=== PATIENT | female | born 1970 | race Caucasian/White ===

== ENCOUNTER 2016-06-29 14:50 | Emergency (ER) | payer BC ==
--- NOTE | 2016-06-29 15:57 | RAD ---
Indication left flank pain. Axial images of the abdomen and pelvis were obtained. The examination was tailored for the detection of renal and/or ureteral calculi. No IV or gastrointestinal contrast was administered. The lung bases are clear. The liver and spleen appear unremarkable. Clips are noted in the gallbladder fossa. No definite pancreatic pathology is seen. The adrenal glands appear unremarkable. There is a minute right renal calculus. No hydronephrosis hydroureter or calcification is seen along the course of the right ureter. There is left hydronephrosis. There is stranding surrounding the left kidney and a small amount of perinephric fluid. There is mild dilatation of the left ureter. The most distal left ureter is not well seen. The dilatation and hydronephrosis is likely secondary to a minute calculus in the distal left ureter (axial image 127 series 2). There is a small amount of air in the urinary bladder which is probably secondary to the reported cystoscopy earlier today. No additional finding is seen in the abdomen or pelvis. A few retroperitoneal lymph nodes are noted. These are likely incidental. There are degenerative changes in the lumbar spine. IMPRESSION: Left hydronephrosis and mild hydroureter likely secondary to a minute 1 to 2 mm calculus in the distal left ureter Minute right renal calculus PQRS Compliance Statement: One or more of the following individualized dose reduction techniques were utilized for this examination: 1. Automated exposure control 2. Adjustment of the mA and/or kV according to patient size 3. Use of iterative reconstruction technique
[2016-06-29] MEDS ORDERED: IV NORMAL SALINE 50ML 50 ML ONE (15:58)
[2016-06-29] MEDS ORDERED: CEFTRIAXONE SODIUM 1 GM VIAL IV ONE (15:58)
[2016-06-29] MEDS: IV NORMAL SALINE 1,000ML 1,000 ML IV ONE (16:00)
[2016-06-29] MEDS: ONDANSETRON PF 4 MG/2 ML VIAL. IV ONE (16:16)
[2016-06-29] MEDS: KETOROLAC 30 MG/ML VIAL. IV ONE (16:17)
[2016-06-29] MEDS: MORPHINE SULFATE 4 MG/ML DISP.SYRIN. IV ONE (16:20)
[2016-06-29] MEDS: TAMSULOSIN 0.4 MG CAP.ER.24H. PO ONE (16:25)
[2016-06-29] MEDS: CEFTRIAXONE SODIUM 1 GM in IV NORMAL SALINE 50ML 50 ML IV ONE (16:25)
[2016-06-29 17:03] LABS: BACTERIA,URINE 0 /HPF (0-FEW); BILIRUBIN,URINE NEG (NEG); CLARITY,URINE HAZY; COLOR,URINE YELLOW; GLUCOSE,URINE NEG (NEG); NITRITE,URINE POS (NEG); RBC,URINE >40 /HPF (0-2); UROBILINOGEN,URINE 0.2 mg/dL (0.2 mg/dL); WBC,URINE 0 /HPF (0-4)
[2016-06-29 17:04] LABS: SQUAMOUS EPITHELIAL CELL,UR MOD /LPF
[2016-06-29 17:35] VITALS: BP 142/76
--- NOTE | 2016-07-03 08:51 | ED.ADGEN ---
Past History Past Medical History: Kidney Stones Past Surgical History: Cholecystectomy, Hysterectomy, Tonsillectomy Alcohol Use: Occasionally Drug Use: None Adult General Chief Complaint Chief Complaint Left flank pain HPI HPI Patient is a 45-year-old female presents acute onset left sided flank pain radiating to left pelvis, with nausea. No fever, chills, hematuria or sweats. Symptom onset started this morning upon returning from urology procedure. Patient had a cystoscopy with retrograde pyelogram per Dr. Cabrera. Review of Systems Review of Systems Review symptoms as per history of present illness. All other review symptoms are negative. Current Medications Current Medications Current Medications Medications (Trade) Dose Ordered Sig/Pawel Start Time Stop Time Status Last Admin Dose Admin Ceftriaxone Sodium/Sodium Chloride (Rocephin/Iv Sodium Chloride 0.9% 50ml) 50 ml @ 100 mls/hr 1X ONCE 06/29/16 16:00 06/29/16 16:29 DC 06/29/16 16:25 100 MLS/HR Ceftriaxone Sodium (Rocephin) 1 gm STK-MED ONCE 06/29/16 15:58 06/29/16 15:59 DC Ketorolac Tromethamine (Toradol) 30 mg 1X ONCE 06/29/16 16:15 06/29/16 16:16 DC 06/29/16 16:17 30 MG Morphine Sulfate (Morphine 4mg Syringe) 4 mg 1X ONCE 06/29/16 16:00 06/29/16 16:01 DC 06/29/16 16:20 4 MG Ondansetron HCl (Zofran) 4 mg 1X ONCE 06/29/16 16:00 06/29/16 16:01 DC 06/29/16 16:16 4 MG Sodium Chloride (Iv Sodium Chloride 0.9% 50ml) 50 ml @ As Directed STK-MED ONCE 06/29/16 15:58 06/29/16 15:59 DC Tamsulosin HCl 0.4 mg 0.4 mg 1X ONCE 06/29/16 16:15 06/29/16 16:16 DC 06/29/16 16:25 0.4 MG Allergies Allergies Allergies Coded Allergies Type Severity Reaction Last Updated Verified Sulfa (Sulfonamide Antibiotics) Allergy Unknown Hives 06/29/16 Yes Physical Exam Physical Exam Constitutional: Well developed, well nourished, moderate discomfort secondary to pain. HENT: Normocephalic, atraumatic, bilateral external ears normal, oropharynx moist, no oral exudates, nose normal. Eyes: PERRLA, EOMI, conjunctiva normal, no discharge. [] Neck: Normal range of motion, no tenderness, supple, no stridor. [] Cardiovascular:Heart rate regular rhythm, no murmur [] Lungs & Thorax: Bilateral breath sounds clear to auscultation [] Abdomen: Bowel sounds normal, soft, no tenderness. Skin: Warm, dry, no erythema, no rash. [] Back: No tenderness, no CVA tenderness. Extremities: No tenderness, no cyanosis, no clubbing, ROM intact, no edema. [] Neurologic: Alert and oriented X 3, normal motor function, normal sensory function, no focal deficits noted. [] Psychologic: Affect normal, judgement normal, mood normal. [] Current Patient Data Vital Signs Vital Signs Date Time Temp Pulse Resp B/P Pulse Ox O2 Delivery O2 Flow Rate FiO2 06/29/16 17:35 86 18 142/76 99 Room Air 06/29/16 14:50 97.9 Lab Results Laboratory Tests Test 06/29/16 16:15 Urine Collection Type Unknown Urine Color Yellow Urine Clarity Hazy Urine pH 6.0 Urine Specific [place] 1.025 Urine Protein 100 mg/dl (NEG-TRACE) Urine Glucose (UA) Negmg/dL (NEG) Urine Ketones (Stick) Negmg/dL (NEG) Urine Blood Large (NEG) Urine Nitrite Pos (NEG) Urine Bilirubin Neg (NEG) Urine Urobilinogen Dipstick 0.2mg/dL (0.2 mg/dL) Urine Leukocyte Esterase Neg (NEG) Urine RBC >40/HPF (0-2) Urine WBC 0/HPF (0-4) Urine Squamous Epithelial Cells Mod/LPF Urine Bacteria 0/HPF (0-FEW) EKG EKG [] Radiology/Procedures Radiology/Procedures [CT abdomen pelvis: Moderate right [place] with probable left distal ureteral stone or radiology report] Impressions: Renal colic Course & Med Decision Making Course & Med Decision Making Pertinent Labs and Imaging studies reviewed. (See chart for details) [Symptoms resolved in the ED. Case reviewed in detail with the patient's urologist. Recommend supportive treatment and follow-up in the office.] Final Impression Final Impression [1. Left flank pain 2. Ureteral stone] Problems: Dragon Disclaimer Dragon Disclaimer This electronic medical record was generated, in whole or in part, using a voice recognition dictation system. DENITA CARBAJAL DO Jul 03, 2016 08:47
== END 2016-06-29 17:35 | disposition home or self-care (01) ==
LOC: ER 14:50
DX: N20.1 Calculus of ureter (principal); R10.9 Unspecified abdominal pain; Z87.442 Personal history of urinary calculi; Z88.2 Allergy status to sulfonamides; Z90.49 Acquired absence of other specified parts of digestive tract; Z90.710 Acquired absence of both cervix and uterus
CPT/HCPCS: 74176; 81001; 96365; 96375; 99285; J0696; J1885; J2270; J2405; J7030

== ENCOUNTER 2017-05-30 09:38 | Emergency (ER) | payer BC ==
[~2017-05-30] VITALS: Ht 177.8 cm; Wt 62.1 kg
[2017-05-30] MEDS ORDERED: IV NORMAL SALINE 1,000ML 1,000 ML IV SCH (09:51)
[2017-05-30] MEDS ORDERED: 0.9 % SODIUM CHLORIDE 10 ML DISP.SYRIN. IV PRN (10:00)
--- NOTE | 2017-05-30 10:04 | PHYS DOC ---
Past History Past Medical History: Kidney Stones Past Surgical History: Cholecystectomy, Hysterectomy, Tonsillectomy Smoking: Non-smoker Alcohol Use: Occasionally Drug Use: None Adult General Chief Complaint Chief Complaint: FLANK PAIN HPI HPI 46-year-old female patient with history of previous kidney stones complains of sudden onset of right flank pain for the last 3 days as an intermittent and sharp stabbing pain with radiation to right lower quadrant that getting force since 2 AM today and associated with 3-4 episodes of vomiting this morning. Patient rated her pain 9/10 and denies fever and chills, new urinary symptoms, diarrhea and constipation. Patient said the pain is like her previous episodes of kidney as well and she tried to drink plenty of liquids without improvement of her condition she states she usually has hematuria because of history of interstitial cystitis but did not have any new change of urine color. Patient states she took leftover of hydrocodone and Phenergan from her previous kidney stone in June of last year but was not able to take any medication since this morning because of nausea and vomiting. Review of Systems Review of Systems Constitutional: Denies fever or chills [] Eyes: Denies change in visual acuity, redness, or eye pain [] HENT: Denies nasal congestion or sore throat [] Respiratory: Denies cough or shortness of breath [] Cardiovascular: No additional information not addressed in HPI [] GI: Reports flank pain, abdominal pain, nausea, vomiting, denies bloody stools or diarrhea [] : Denies dysuria, reports much reviewed and flank pain Musculoskeletal: Denies back pain or joint pain [] Integument: Denies rash or skin lesions [] Neurologic: Denies headache, focal weakness or sensory changes [] Endocrine: Denies polyuria or polydipsia [] All other systems were reviewed and found to be within normal limits, except as documented in this note. Current Medications Current Medications Current Medications Medications (Trade) Dose Ordered Sig/Pawel Start Time Stop Time Status Last Admin Dose Admin Ketorolac Tromethamine (Toradol) 30 mg 1X ONCE 05/30/17 10:00 05/30/17 10:01 UNV Ondansetron HCl (Zofran) 4 mg 1X ONCE 05/30/17 10:00 05/30/17 10:01 UNV Sodium Chloride (Normal Saline Flush) 10 ml QSHIFT PRN 05/30/17 10:00 UNV Allergies Allergies Allergies Coded Allergies Type Severity Reaction Last Updated Verified Sulfa (Sulfonamide Antibiotics) Allergy Unknown Hives 06/29/16 Yes Physical Exam Physical Exam Constitutional: Well developed, well nourished, moderate distress, non-toxic appearance. [] HENT: Normocephalic, atraumatic, bilateral external ears normal, oropharynx moist, no oral exudates, nose normal. [] Eyes: PERRLA, EOMI, conjunctiva normal, no discharge. [] Neck: Normal range of motion, no tenderness, supple, no stridor. [] Cardiovascular:Heart rate regular rhythm, no murmur [] Lungs & Thorax: Bilateral breath sounds clear to auscultation [] Abdomen: Bowel sounds normal, soft, no tenderness, no masses, no pulsatile masses. [] Skin: Warm, dry, no erythema, no rash. [] Back: No tenderness, no CVA tenderness. [] Extremities: No tenderness, no cyanosis, no clubbing, ROM intact, no edema. [] Neurologic: Alert and oriented X 3, normal motor function, normal sensory function, no focal deficits noted. [] Psychologic: Anxious, judgement normal, mood normal. [] EKG EKG [] Radiology/Procedures Radiology/Procedures [] [place] [address] IMAGING REPORT Signed PATIENT: JERMAINE BABB ACCOUNT: [id number] : 1970 LOCATION: ER AGE: 46 SEX: F EXAM STATUS: REG ER ORD. PHYSICIAN: PETE CUMMINGS MD REASON: right flank pain PROCEDURE: CT ABDOMEN PELVIS WO CONTRAST CT study of the abdomen and pelvis without contrast Clinical indications: Right flank pain. Hematuria since Sunday. History of stones. Technique: Noncontrast helical CT scanning of the abdomen and pelvis was performed. Without contrast, the sensitivity to detect organ pathology and GI tract pathology is decreased. PQRS Compliance Statement: One or more of the following individualized dose reduction techniques were utilized for this examination: 1. Automated exposure control 2. Adjustment of the mA and/or kV according to patient size 3. Use of iterative reconstruction technique IMPRESSION: June 29, 2016. Findings: Nonobstructing punctate stone of the lower pole of the right kidney is seen. No hydronephrosis or hydroureter or ureteral stone is seen. A small subcentimeter hypodense nodule of the upper pole of the right kidney is seen most likely representing a hyperdense cyst. A small hypodense cyst was seen here previously and is unchanged in size. No perinephric inflammatory change or free fluid is evident. No adrenal mass is seen. No focal aneurysmal dilatation of the abdominal aorta is seen. No bulky abdominal pelvic lymphadenopathy is evident. Urinary bladder wall is smooth. The liver and spleen are homogeneous in appearance on this noncontrast study. The pancreatic borders are difficult to delineate due to nonopacified adjacent bowel loops. The gallbladder is surgically absent and no extra hepatic biliary ductal dilatation is seen. There are no CT findings of appendicitis. No obstructive bowel pattern is evident. No free air or free fluid or mesenteric edema is seen. No lung base consolidation is evident. No osteolytic process is seen. IMPRESSION: Nonobstructing punctate stone of the lower pole of the right kidney. No hydronephrosis or hydroureter or ureteral stone is seen. DICTATED AND SIGNED BY: DESTINY KUO MD DATE: 05/30/17 1030 CC: PETE CUMMINGS MD; KATELYN AUSTIN ~ Course & Med Decision Making Course & Med Decision Making Pertinent Labs and Imaging studies reviewed. (See chart for details) Evaluation of patient in ER showed 46-year-old female patient with history of kidney stone and complaining of intermittent episodes of right flank pain. Patient had unremarkable labs and CT abdomen and pelvis except for mild UTI and nonobstructive right kidney stone. Patient treated with Toradol and states her pain did not change after having morphine she states her pain improved. Plan discharge patient home to diagnose of UTI and flank pain. I've spoken with the patient and/or caregivers. I've explained the patient's condition, diagnosis and treatment plan based on information available to me at this time. I've answered the patient's and/or caregivers questions and addressed any concerns. The patient and/or caregivers have a good understanding the patient's diagnosis, condition and treatment plan as can be expected at this point. Vital signs have been stabilized. The patient's condition is stable for discharge from the emergency department. The patient will pursue further outpatient evaluation with her primary care provider or other designated consulting physician as outlined in the discharge instructions. Patient and/or caregivers are agreeable to this plan of care and follow-up instructions have been explained in detail. The patient and/or caregivers have received these instructions in written format and expressed understanding of these discharge instructions. The patient and her caregivers are aware that if any significant change in condition or worsening of symptoms should prompt him to immediately return to this of the closest emergency department. If an emergent department is not readily available I would encourage him to call 911. John Disclaimer Dragon Disclaimer This electronic medical record was generated, in whole or in part, using a voice recognition dictation system. Departure Departure: Impression: Primary Impression: Acute right flank pain Additional Impressions: Urinary tract infection Dehydration Nephrolithiasis Musculoskeletal strain Disposition: HOME, SELF-CARE (At 1216) Condition: IMPROVED Referrals: KATELYN AUSTIN (PCP) Patient Instructions: Dehydration, Adult, Diet for Kidney Stones, Flank Pain, Urinary Tract Infection Additional Instructions: Drink plenty of liquids Follow-up with your primary care physician in 3-5 days Return to ER if not getting better Scripts Tramadol Hcl (ULTRAM) 50 Mg Tablet 50 MG PO PRN Q6HRS Y for PAIN, #14 TAB Prov: PETE CUMMINGS MD 05/30/17 Cyclobenzaprine Hcl (CYCLOBENZAPRINE HCL) 10 Mg Tablet 1 TAB PO TID, #21 TAB Prov: PETE CUMMINGS MD 05/30/17 Ciprofloxacin Hcl (CIPRO) 250 Mg Tablet 1 TAB PO BID, #6 TAB Prov: PETE CUMMINGS MD 05/30/17 Problem Qualifiers PETE CUMMINGS MD May 30, 2017 10:04
[2017-05-30] MEDS ORDERED: KETOROLAC 30 MG/ML VIAL. IV ONE (10:15)
[2017-05-30] MEDS ORDERED: ONDANSETRON PF 4 MG/2 ML VIAL. IV ONE (10:15)
[2017-05-30 10:21] LABS: ALBUMIN 3.7 g/dL (3.4-5.0); ALBUMIN/GLOBULIN RATIO 1.2 (1.0-1.7); CALCIUM 8.5 mg/dL (8.5-10.1); CREATININE 0.7 mg/dL (0.6-1.0); GFR 90.1; POTASSIUM 4.3 mmol/L (3.5-5.1); TOTAL BILIRUBIN 0.5 mg/dL (0.2-1.0); TOTAL PROTEIN 6.9 g/dL (6.4-8.2)
[2017-05-30 10:23] LABS: BASO % 0 % (0-3); EOS % 1 % (0-3); HEMATOCRIT 38.3 % (36.0-47.0); HEMOGLOBIN 12.7 g/dL (12.0-15.5); LYMPH # 1.4 x10^3/uL (1.0-4.8); LYMPH % 26 % (24-48); MEAN CORPUSCULAR HEMOGLOBIN 30 pg (25-35); MEAN CORPUSCULAR HGB CONC 33 g/dL (31-37); MEAN CORPUSCULAR VOLUME 89 fL (79-100); MONO # 0.4 x10^3/uL (0.0-1.1); MONO % 7 % (0-9); NEUT # 3.6 x10^3uL (1.8-7.7); NEUT % 66 % (31-73); PLATELET COUNT 215 x10^3/uL (140-400); RED BLOOD COUNT 4.32 x10^6/uL (3.50-5.40); RED CELL DISTRIBUTION WIDTH 13.5 % (11.5-14.5); WHITE BLOOD COUNT 5.4 x10^3/uL (4.0-11.0)
--- NOTE | 2017-05-30 10:45 | RAD ---
CT study of the abdomen and pelvis without contrast Clinical indications: Right flank pain. Hematuria since Sunday. History of stones. Technique: Noncontrast helical CT scanning of the abdomen and pelvis was performed. Without contrast, the sensitivity to detect organ pathology and GI tract pathology is decreased. PQRS Compliance Statement: One or more of the following individualized dose reduction techniques were utilized for this examination: 1. Automated exposure control 2. Adjustment of the mA and/or kV according to patient size 3. Use of iterative reconstruction technique IMPRESSION: June 29, 2016. Findings: Nonobstructing punctate stone of the lower pole of the right kidney is seen. No hydronephrosis or hydroureter or ureteral stone is seen. A small subcentimeter hypodense nodule of the upper pole of the right kidney is seen most likely representing a hyperdense cyst. A small hypodense cyst was seen here previously and is unchanged in size. No perinephric inflammatory change or free fluid is evident. No adrenal mass is seen. No focal aneurysmal dilatation of the abdominal aorta is seen. No bulky abdominal pelvic lymphadenopathy is evident. Urinary bladder wall is smooth. The liver and spleen are homogeneous in appearance on this noncontrast study. The pancreatic borders are difficult to delineate due to nonopacified adjacent bowel loops. The gallbladder is surgically absent and no extra hepatic biliary ductal dilatation is seen. There are no CT findings of appendicitis. No obstructive bowel pattern is evident. No free air or free fluid or mesenteric edema is seen. No lung base consolidation is evident. No osteolytic process is seen. IMPRESSION: Nonobstructing punctate stone of the lower pole of the right kidney. No hydronephrosis or hydroureter or ureteral stone is seen.
[2017-05-30] MEDS ORDERED: MORPHINE SULFATE 4 MG/ML DISP.SYRIN. IV ONE ×2 (11:15→12:15)
[2017-05-30] MEDS ORDERED: ORPHENADRINE CITRATE 60 MG/2 ML VIAL. IV ONE (11:30)
[2017-05-30 12:08] LABS: BACTERIA,URINE MANY /HPF (0-FEW); BILIRUBIN,URINE NEG (NEG); CLARITY,URINE HAZY; COLOR,URINE YELLOW; GLUCOSE,URINE NEG (NEG); NITRITE,URINE POS (NEG); SQUAMOUS EPITHELIAL CELL,UR FEW /LPF; UROBILINOGEN,URINE 0.2 mg/dL (0.2 mg/dL)
[2017-05-30] MEDS ORDERED: CYCL-331 PO (12:18)
[2017-05-30] MEDS ORDERED: CIPR250T30 PO (12:18)
[2017-05-30] MEDS ORDERED: TRAM-48 PO (12:18)
[2017-05-30 12:29] VITALS: BP 128/85
== END 2017-05-30 12:25 | disposition home or self-care (01) ==
LOC: ER 09:38
DX: N20.0 Calculus of kidney (principal); N39.0 Urinary tract infection, site not specified; S39.011A Strain of muscle, fascia and tendon of abdomen, initial encounter; E86.0 Dehydration; Z87.442 Personal history of urinary calculi; Z90.49 Acquired absence of other specified parts of digestive tract; Z90.710 Acquired absence of both cervix and uterus; Z88.2 Allergy status to sulfonamides; X58.XXXA Exposure to other specified factors, initial encounter; Y93.89 Activity, other specified; Y99.8 Other external cause status; Y92.89 Other specified places as the place of occurrence of the external cause
CPT/HCPCS: 36415; 74176; 80053; 81001; 83690; 85025; 87086; 96361; 96374; 96375; 99285; J1885; J2270; J2360; J2405; 87186; J7030

== ENCOUNTER 2020-09-04 12:12 | Emergency (ER) | payer BC ==
[~2020-09-04] VITALS: Ht 175.3 cm; Wt 70.6 kg
[~2020-09-04 12:12] MED LIST: CIPR250T30 PO; CYCL-331 PO; TRAM-48 PO
[2020-09-04 12:30] VITALS: BP 131/63
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
== END 2020-09-04 13:19 | disposition home or self-care (01) ==
LOC: ER 12:12 → EEVIPCON 12:12 → ER 13:19
DX: S01.81XA Laceration without foreign body of other part of head, initial encounter (principal); Z90.49 Acquired absence of other specified parts of digestive tract; Z90.710 Acquired absence of both cervix and uterus; Z87.442 Personal history of urinary calculi; Z88.2 Allergy status to sulfonamides; W22.8XXA Striking against or struck by other objects, initial encounter; Y93.89 Activity, other specified; Y92.89 Other specified places as the place of occurrence of the external cause; Y99.8 Other external cause status
CPT/HCPCS: 99282